=== PATIENT | female | born 2000 | race Hispanic/Latino ===

== ENCOUNTER 2021-08-11 22:46 | Emergency (ER) | payer OTHER | END 2021-08-11 23:18 | disposition home or self-care (01) | LOC: NAV ERS 22:46 | DX: S01.01XA Laceration without foreign body of scalp, initial encounter (principal); R55 Syncope and collapse; W01.198A Fall on same level from slipping, tripping and stumbling with subsequent striking against other object, initial encounter; Z79.899 Other long term (current) drug therapy | CPT/HCPCS: 93005 ==